=== PATIENT | male | born 1975 | race Caucasian/White ===

== ENCOUNTER 2018-10-28 06:55 | Emergency (ER) | payer BC ==
[2018-10-28 07:01] VITALS: BMI 20.3
[2018-10-28 07:07] VITALS: BP 112/71; PULSE 53; TEMP 98.3
--- NOTE | 2018-10-28 07:59 | PDOC ---
History of Present Illness - General Chief Complaint: Vomiting/Diarrhea Stated Complaint: NAUSEA/VOMITING/DIARRHEA [id number] Time Seen by Provider: 10/28/18 07:06 History Source: Patient Exam Limitations: No Limitations - History of Present Illness Initial Comments: 10/28/18 07:54 43-year-old male with history of depression currently restarted on Lexapro in July, history of basal cell melanoma status post resection last year, presents now with constellation of symptoms over the last 1 week to 6 months. Patient has multiple complaints including intermittent positional/ musculoskeletal right shoulder discomfort, a single episode of palpitations while lying in his bed last week. The bulk of the complaints seem to arouse round GI issues and general fatigue. He reports decreased appetite, nausea with an episode of nonbloody nonbilious vomiting last night, occasional diarrhea that is nonbloody, generalized malaise and always feeling tired, generalized body aches. He has not had significant weight loss out of proportion to the decreased appetite/by mouth intake, no fevers or night sweats. The abdominal pain is epigastric, intermittent and described as discomfort, nothing persistent or localized. 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 He admits that his mood has improved since starting the Lexapro in July, though he only takes half of the milligrams prescribed to him. He denies any current or history of anxiety, denies any suicidal ideations or homicidal ideations, denies any hallucinations. He has a girlfriend, recently moved here from [place]. He did see his new PCP in July and reports a normal routine workup. He saw his PCP last week regarding all of these symptoms and was told he may have a stomach infection, labs were ordered at that time but the patient did not follow -up to have them done. He presents today for persistent symptoms and workup. denies tobacco/etoh. admits to nighttime marijuana use. Past History - Past Medical History Allergies/Adverse Reactions: Allergies Allergy/AdvReac Type Severity Reaction Status Date / Time No Known Allergies Allergy Verified 10/28/18 06:58 Home Medications: Ambulatory Orders Escitalopram Oxalate [Lexapro -] 5 mg PO DAILY 10/28/18 COPD: No GI Disorders: (2 UPPER ENDOSCOPIES) Psychiatric Problems: Yes (DEPRESSION) - Suicide/Smoking/Psychosocial Hx Smoking History: Never smoked Hx Alcohol Use: Yes (OCASIONAL) Drug/Substance Use Hx: Yes (MARIJUANA DAILY) Review of Systems - Review of Systems Constitutional: No: Chills, Fever, Night Sweats, Unintentional Wgt. Loss HEENTM: No: Recent change in vision, Nose Congestion, Throat Swelling Respiratory: No: Cough, Shortness of Breath, SOB with Exertion Cardiac (ROS): Yes: Chest Pain, Lightheadedness, Palpitations. No: Edema, Syncope ABD/GI: Yes: Diarrhea, Nausea, Vomiting. No: Constipated : No: Dysuria, Flank Pain, Hematuria Musculoskeletal: Yes: Joint Pain, Muscle Pain Neurological: No: Headache Psychiatric: Yes: Depression Endocrine: No: Intolerance to Cold, Intolerance to Heat, Increased Thirst All Other Systems: Reviewed and Negative *Physical Exam - Vital Signs Last Vital Signs Temp Pulse Resp BP Pulse Ox 98.3 F 53 L 16 112/71 99 10/28/18 06:57 10/28/18 06:57 10/28/18 06:57 10/28/18 06:57 10/28/18 06:57 - Physical Exam Comments: 10/28/18 08:00 Vital signs normal GENERAL: The patient is awake, alert, and fully oriented, in no acute distress. HEAD: Normal with no signs of trauma. EYES: PERRL, EOMI, sclera anicteric, conjunctiva clear with no pallor. ENT: oropharynx clear without exudates. Moist mucous membranes. NECK: Normal range of motion, supple without lymphadenopathy, JVD, or masses. LUNGS: Breath sounds equal, clear to auscultation bilaterally. No wheeze/ crackles. HEART: Regular bradycardia, normal S1 and S2 without audible murmur or rub. ABDOMEN: Soft/nontender/nondistended. BS wnl. Minimal discomfort to deep palpation in the left lower quadrant, no guarding or rebound. No palpable masses. No hepatosplenomegaly. No CVA tenderness. EXTREMITIES: Normal range of motion, no edema. 2+ distal pulses. No cords, erythema, or tenderness. NEUROLOGICAL: Cranial nerves II through XII grossly intact. Normal speech, normal gait. PSYCH: Normal mood, makes good eye contact, normal affect. No SI/HI/AH/VH. SKIN: Warm, Dry, no rashes or lesions noted. Healed excision scars to the left face and left arm from prior melanoma. No obvious large lesions. Heart Score/ECG Review #1 ECG reviewed & interpreted by me at: 07:45 General ECG Interpretation: Sinus Rhythm, Normal Rate (47), Normal Intervals ( qtc 389, IRBBB with qrs 90), No acute ischemic changes ED Treatment Course - LABORATORY CBC & Chemistry Diagram: 10/28/18 07:43 10/28/18 07:43 Medical Decision Making - Medical Decision Making 10/28/18 08:04 43-year-old male with history of depression presents with constellation of multisystem symptoms over the last weeks to months, presents for evaluation. No specific findings on history or physical exam, hemodynamically stable. Rule out primary GI process given that seems to be the primary source of his complaints, rule out anemia given the generalized malaise. Has history of melanoma but no evidence of constitutional symptoms on history to suggest metastatic disease. Discussed the possibility of depression/anxiety causing his symptoms, particularly since he is taking very low treatment doses. Simultaneously, many of his symptoms could correlate with side effects of SSRI. Check basic labs EKG is normal If above is within normal limits, patient reassured and can continue workup with his PCP and specialists. 10/28/18 09:19 labs completely wnl, no leukocytosis/anemia, lytes/LFT/lipase normal. Pt remains comfortably resting in stretcher, texting on his cell phone. Agrees with d/c plan, will f/u with PCP, results provided to him for comparison to last week's visit. Understands return criteria. *DC/Admit/Observation/Transfer Diagnosis at time of Disposition: Nausea, Malaise, Decreased appetite - Discharge Dispostion Disposition: HOME Condition at time of disposition: Stable - Referrals Referrals: Delmer Live [Primary Care Provider] - - Patient Instructions Printed Discharge Instructions: DI for Nausea -- Adult Additional Instructions: Activity as tolerated. Stay hydrated. Blood tests and an EKG performed today showed no acute abnormalities. Continue your medications as previously prescribed by your physician. Consider speaking to her primary physician about the Lexapro dosing. You should follow up with your primary doctor as soon as possible regarding today's emergency department visit. Return to the emergency department for any new or concerning symptoms, particularly severe dehydration, persistent or intolerable pain, fevers or chills, overwhelming depression or anxiety. - Post Discharge Activity
[2018-10-28 08:21] LABS: ALBUMIN 3.9 g/dl (3.4-5.0); ALK PHOS 50 U/L (45-117); ANION GAP 7 MMOL/L (8-16); BILIRUBIN,TOTAL 0.8 mg/dl (0.2-1); BLOOD UREA NITROGEN 14 mg/dl (7-18); CALCIUM 8.8 mg/dl (8.5-10); CHLORIDE 105 mmol/L (98-107); CO2 27 mmol/L (21-32); CREATININE 1.1 mg/dl (0.55-1.3); GLUCOSE,RANDOM 94 mg/dl (74-106); POTASSIUM 4.1 mmol/L (3.5-5.1); SGOT/AST 32 U/L (15-37); SGPT/ALT 31 U/L (13-61); SODIUM 139 mmol/L (136-145); TOT PROT 6.9 g/dl (6.4-8.2)
[2018-10-28 08:30] LABS: BASO % 0.2 % (0-2.0); EOS % 2.3 % (0-4.5); HEMATOCRIT 43.3 % (35.4-49); LYMPH % 23.2 % (8-40); MCHC 34.6 g/dl (32.0-35.9); MEAN CELL VOLUME 92.5 fl (80-96); MEAN PLT VOLUME 8.5 fl (7.5-11.1); MONO % 9.4 % (3.8-10.2); NEUT % 64.9 % (42.8-82.8); PLATELET COUNT 301 K/MM3 (134-434); RBC 4.69 M/mm3 (4.00-5.60); RDW 12.6 % (11.9-15.9); WHITE BLOOD COUNT 8.5 K/mm3 (4.0-10.8)
[2018-10-28 09:13] LABS: LIPASE 177 U/L (73-393)
--- NOTE | 2018-10-28 16:38 | EKG ---
Test Reason : Blood Pressure : / mmHG Vent. Rate : 047 BPM Atrial Rate : 047 BPM P-R Int : 142 ms QRS Dur : 090 ms QT Int : 440 ms P-R-T Axes : 066 061 065 degrees QTc Int : 389 ms SINUS BRADYCARDIA OTHERWISE NORMAL ECG NO PREVIOUS ECGS AVAILABLE Confirmed by ONIEL DEL CID, EUGENE ([id number]) on 10/28/2018 4:38:13 PM Referred By: JUAN REED Confirmed By:EUGENE ENGLE MD
== END 2018-10-28 09:27 | disposition home or self-care (01) ==
LOC: SUPCPDRO 06:55 → FER 06:55
DX: R11.0 Nausea (principal); R53.81 Other malaise; R63.0 Anorexia; F32.9 Major depressive disorder, single episode, unspecified; Z85.820 Personal history of malignant melanoma of skin
CPT/HCPCS: 36415; 80053; 83690; 85025; 93005; 99281-25